=== PATIENT | male | born 1935 | race Caucasian/White ===

== ENCOUNTER 2017-06-24 10:34 | Outpatient (CLI) | payer OTHER, MEDICARE ==
[2015-02-01 05:20] VITALS: BP 146/57
[2017-06-25 07:51] LABS: ADENOVIRUS DNA NEGATIVE (NEGATIVE); BORDETELLA PERTUSSIS DNA NEGATIVE (NEGATIVE); SOURCE: NASOPHARYNGEAL SWAB
== END 2017-06-24 10:35 ==
LOC: LABRHC 10:34
PROVIDERS: ATTEND Family Medicine
DX: J06.9 Acute upper respiratory infection, unspecified (principal)
CPT/HCPCS: 87486; 87581; 87633; 87798

== ENCOUNTER 2017-07-05 11:59 | Outpatient (CLI) | payer OTHER, MEDICARE ==
[2015-02-01 05:20] VITALS: BP 146/57
--- NOTE | 2017-07-05 13:06 | Diagnostic Imaging Report ---
SNÁCHEZ DAN [facility] [address] [facility] [address] [address] Report Submission Date: Jul 05, 2017 12:54:27 PM FUSE SPOOLER Patient Study Name: MARKIE HENRY Date: Jul 05, 2017 12:04:10 PM FUSE SPOOLER Modality Type: CR Gender: M Description: CHEST : 33 Institution: [facility] Physician: SÁNCHEZ DAN Examination: PA and lateral chest. History: COUGH, WHEEZE (Hx) / COUGH, WHEEZE (DICOM Hx) / COUGH, WHEEZE (Pt comments) Comparison exam: None provided. Findings: PA lateral chest demonstrate a normal cardiac and mediastinal silhouette. Tortuous aorta with vascular calcifications involving aortic arch. No focal infiltrate. No blunting of the costophrenic margins. Scattered pulmonary granuloma. Osseous structures are appropriate for age. Impression: No acute appearing pulmonary process. Electronically signed on Jul 05, 2017 12:54:27 PM FUSE SPOOLER by: Dima WOOD
== END 2017-07-05 12:00 ==
LOC: RAD 11:59
PROVIDERS: ATTEND Family Medicine
DX: R05 Cough (principal)
CPT/HCPCS: 71020

== ENCOUNTER 2017-09-07 11:16 | Outpatient (CLI) | payer OTHER ==
[2015-02-01 05:20] VITALS: BP 146/57
[2017-09-07 11:56] LABS: eGFR (African) 57; eGFR (Non-African) 48
== END 2017-09-07 11:18 ==
LOC: LAB 11:16
PROVIDERS: ATTEND Family Medicine
DX: E11.9 Type 2 diabetes mellitus without complications (principal)
CPT/HCPCS: 36415; 80048; 83036

== ENCOUNTER 2018-01-28 14:11 | Outpatient (CLI) | payer OTHER, MEDICARE ==
[2015-02-01 05:20] VITALS: BP 146/57
== END 2018-01-28 14:20 ==
LOC: LAB 14:11
PROVIDERS: ATTEND Family Medicine
DX: R30.0 Dysuria (principal)
CPT/HCPCS: 87086; 87186